=== PATIENT | male | born 1985 | race African-American/Black ===

== ENCOUNTER 2019-01-19 00:24 | Emergency (ER) | payer MEDICAID ==
[~2019-01-19] VITALS: Ht 167.6 cm; Wt 68.0 kg
[2019-01-19 00:33] VITALS: BP 126/72
--- NOTE | 2019-01-19 00:45 | NUR ---
ED Nurse Note: Recieved pt BIBA from streets with c/o meth use and anxiety, pt is awake, alert and oriented x 4, very agitated and restless, pt denies chest pain or any pain, no sob or labored breathing, pt placed on cardiac monitoring, MD at bedside, pt given food and fluids to drink, will continue to closely monitor, pt states he is homeless.
--- NOTE | 2019-01-19 00:56 | Emergency Room Report ---
History of Present Illness General Chief Complaint: Substance Abuse Source: Patient, EMS, Law Enforcement Present Illness HPI Disclaimer: Please note that this report is being documented using DRAGON technology. This can lead to erroneous entry secondary to incorrect interpretation by the dictating instrument. HPI: 33-year-old male with a history of substance abuse presents for evaluation of abnormal behavior. He comes in with police and [employer] fire but not in police custody. Patient reports to using crystal meth earlier in the day and was found wandering around acting somewhat erratically but not harming himself or others. He arrives with stable vital signs and is no complaints at this time. He denies any other drug or alcohol use today. States he uses meth intermittently. He has a history of depression but does not take medications. He denies SI or HI at this time. He is requesting something to eat and drink and would like to rest for a little bit. Patient is homeless. No acute medical complaints at this time. Denies headache, vision changes, chest pain, shortness of breath, nausea, vomiting or recent fever PMH: Substance abuse, depression PSH: Denies Allergies: Denies Social Hx: Crystal meth use Allergies: Coded Allergies: No Known Allergies (Unverified , 01/19/19) Review of Systems All Other Systems: negative except mentioned in HPI Physical Exam Vital Signs Date Time Temp Pulse Resp B/P (MAP) Pulse Ox O2 Delivery O2 Flow Rate FiO2 01/19/19 00:22 99.0 76 20 126/72 (90) 98 Room Air General: Awake and alert, no acute distress HEENT: NC/AT. EOMI. dry mucous membranes Cardiovascular: RRR. S1 and S2 normal. No murmur appreciated Resp: Normal work of breathing. No cough, wheezing or crackles appreciated Abdomen: Abdomen is soft, nondistended. Nontender Skin: 1 cm superficial laceration over the radial aspect of the left thumb just proximal to the IPJ MSK: Normal tone and bulk. Moving all extremities. No obvious deformity. Patient is able to flex and extend all digits of the left hand as well as the wrist. No tenderness over the anatomic snuffbox. Neuro: Awake and alert. Mentating appropriately. Following two-step commands without difficulty. No ataxia. Good attention and concentration. Denies SI/ HI. Medical Decision Making Homeless Attestation Patient has been medically screened and is stable for outpatient follow up Diagnostic Impression: Primary Impression: Substance abuse ER Course 33-year-old male presents for evaluation of erratic behavior after smoking crystal meth earlier in the day. He has no complaints at this time. He denies SI/HI and is requesting something to eat and drink. Appears he has a small and superficial laceration over the radial aspect of his left thumb which we will clean and inspect further. Does not appear to require closure. Will update tetanus. Reevaluation Time: 02:29 Last Vital Signs Date Time Temp Pulse Resp B/P (MAP) Pulse Ox O2 Delivery O2 Flow Rate FiO2 01/19/19 00:33 76 20 Room Air 01/19/19 00:33 99.0 126/72 98 Reevaluation Impression Patient stated he was ready to leave the emergency department. I was discharging him however he walked out without his papers. Ambulating with a steady gait. Disposition: HOME, SELF-CARE Condition: Stable Angel Dolan MD Jan 19, 2019 00:56
[2019-01-19] MEDS ORDERED: Tetanus/Diptheria/Pertussis IM ONE (01:00)
--- NOTE | 2019-01-19 02:00 | NUR ---
ED Nurse Note: pt remains awake and alert, given multiple drinks of water and sandwiches, pt remains slightly agitated but does follow directions, pt will not keep on monitoring, MD aware, urine sample sent, pt continuesto deny pain or any discomforts, just ask if he can "rest it off", no acute chagnes, will continue to closely monitor and d/c when sober.
[2019-01-19 02:30] VITALS: BP 126/72
--- NOTE | 2019-01-19 02:30 | NUR ---
ED Nurse Note: Pt came out of room and demanding to leave, states he does not want to stay anymore, MD aware, pt leftwithout d/c instructions, pt was awake, alert and oriented x 4, ambulatory with steady gait, no sob or labored breathing, nad noted during pt leaving facility without instructions, MD and charge nruse aware, pt refused all d/c forms and instructions.
== END 2019-01-19 02:30 | disposition home or self-care (01) ==
LOC: EDBD 00:24 → EMR 00:53
DX: F15.10 Other stimulant abuse, uncomplicated (principal); S61.012A Laceration without foreign body of left thumb without damage to nail, initial encounter; F32.9 Major depressive disorder, single episode, unspecified; Z59.0 Homelessness; X58.XXXA Exposure to other specified factors, initial encounter; Y93.9 Activity, unspecified; Y92.9 Unspecified place or not applicable
CPT/HCPCS: 90471; 90715; Z7502; 99282

== ENCOUNTER 2019-01-19 03:25 | Emergency (ER) | payer MEDICAID ==
[~2019-01-19] VITALS: Ht 172.7 cm; Wt 70.3 kg
--- NOTE | 2019-01-19 03:25 | NUR ---
ED Nurse Note: Sitter Requested, House sup states no sitter available.
--- NOTE | 2019-01-19 03:36 | Emergency Room Report ---
History of Present Illness General Chief Complaint: Overdose Source: Patient, Law Enforcement (Angel Dolan MD) Present Illness HPI Disclaimer: Please note that this report is being documented using DRAGON technology. This can lead to erroneous entry secondary to incorrect interpretation by the dictating instrument. HPI: 33-year-old male with a history of substance abuse returns to the emergency department after being discharged and leaving without his paperwork approximately 1 hour ago. He admits to methamphetamine use earlier in the day. Patient returns in the custody of police who are preparing to put him on a 5150 hold for danger to others. Reportedly, he called the choke setter himself stating that he was robbed. Police that he was agitated and he comes in in restraints. Please state that he was banging on the door of a nearby fast food restaurant and were called as a possible burglary. Again he has no complaints and is asking for food and something to drink. He arrives in restraints placed by police. PMH: Substance abuse, depression PSH: Denies Allergies: Denies Social Hx: As amphetamine abuse (Angel Dolan MD) Allergies: Coded Allergies: No Known Allergies (Unverified , 01/19/19) Review of Systems All Other Systems: negative except mentioned in HPI (Angel Dolan MD) Physical Exam Vital Signs Date Time Temp Pulse Resp B/P (MAP) Pulse Ox O2 Delivery O2 Flow Rate FiO2 01/19/19 03:23 98.2 87 22 135/76 (95) 96 Room Air General: Awake and alert, no acute distress HEENT: NC/AT. EOMI. Cardiovascular: RRR. S1 and S2 normal. No murmur appreciated Resp: Normal work of breathing. No cough, wheezing or crackles appreciated Abdomen: Abdomen is soft, nondistended. Nontender Skin: 1 cm superficial laceration over the radial aspect of the left thumb near the interphalangeal joint. Hemostatic, no edema. No purulence MSK: Arrives handcuffed to the [facility] with police. Normal tone and bulk. Moving all extremities. No obvious deformity. Neuro: Awake and alert. Answering questions appropriately. Somewhat agitated though redirectable. (Angel Dolan MD) Medical Decision Making ER Course 33-year-old male presents for evaluation of aggressive behavior now being placed on 5150 hold by [employer]. He admits to using crystal meth earlier in the day. Patient will have broad labs started and will require some sedation with Ativan and Benadryl. He remains in restraints but will remove once he is more calm and sedated. He will then require psychiatric clearance. Laboratory Tests Test 01/19/19 03:50 01/19/19 04:11 White Blood Count 9.1 K/UL (4.8-10.8) Red Blood Count 4.54 M/UL (4.70-6.10) L Hemoglobin 13.5 G/DL (14.2-18.0) L Hematocrit 41.4 % (42.0-52.0) L Mean Corpuscular Volume 91 FL (80-99) Mean Corpuscular Hemoglobin 29.8 PG (27.0-31.0) Mean Corpuscular Hemoglobin Concent 32.6 G/DL (32.0-36.0) Red Cell Distribution Width 12.9 % (11.6-14.8) Platelet Count 303 K/UL (150-450) Mean Platelet Volume 5.9 FL (6.5-10.1) L Neutrophils (%) (Auto) 58.6 % (45.0-75.0) Lymphocytes (%) (Auto) 26.2 % (20.0-45.0) Monocytes (%) (Auto) 11.5 % (1.0-10.0) H Eosinophils (%) (Auto) 2.3 % (0.0-3.0) Basophils (%) (Auto) 1.4 % (0.0-2.0) Sodium Level 144 MMOL/L (136-145) Potassium Level 4.4 MMOL/L (3.5-5.1) Chloride Level 107 MMOL/L (98-107) Carbon Dioxide Level 30 MMOL/L (21-32) Anion Gap 8 mmol/L (5-15) Blood Urea Nitrogen 32 mg/dL (7-18) H Creatinine 1.1 MG/DL (0.55-1.30) Estimate Glomerular Filtration Rate > 60 mL/min (>60) Glucose Level 91 MG/DL (74-106) Calcium Level 8.3 MG/DL (8.5-10.1) L Total Bilirubin 0.3 MG/DL (0.2-1.0) Aspartate Amino Transferase (AST) 44 U/L (15-37) H Alanine Aminotransferase (ALT) 56 U/L (12-78) Alkaline Phosphatase 59 U/L (46-116) Total Protein 7.0 G/DL (6.4-8.2) Albumin 3.3 G/DL (3.4-5.0) L Globulin 3.7 g/dL Albumin/Globulin Ratio 0.9 (1.0-2.7) L Salicylates Level 1.0 ug/mL (2.8-20) L Acetaminophen Level < 2 MCG/ML (10-30) L Serum Alcohol < 3 mg/dL Urine Color Pale yellow Urine Appearance Clear Urine pH 7 (4.5-8.0) Urine Specific [place] 1.015 (1.005-1.035) Urine Protein Negative (NEGATIVE) Urine Glucose (UA) Negative (NEGATIVE) Urine Ketones Negative (NEGATIVE) Urine Blood 4+ (NEGATIVE) H Urine Nitrite Negative (NEGATIVE) Urine Bilirubin Negative (NEGATIVE) Urine Urobilinogen Normal MG/DL (0.0-1.0) Urine Leukocyte Esterase Negative (NEGATIVE) Urine RBC 40-60 /HPF (0 - 0) H Urine WBC 2-4 /HPF (0 - 0) Urine Squamous Epithelial Cells None /LPF (NONE/OCC) Urine Bacteria Few /HPF (NONE) Urine Opiates Screen Negative (NEGATIVE) Urine Barbiturates Screen Negative (NEGATIVE) Phencyclidine (PCP) Screen Negative (NEGATIVE) Urine Amphetamines Screen Positive (NEGATIVE) H Urine Benzodiazepines Screen Negative (NEGATIVE) Urine Cocaine Screen Negative (NEGATIVE) Urine Marijuana (THC) Screen Negative (NEGATIVE) (Angel Dolan MD) ER Course Patient was seen by Dr. Santiago. Per recommendations patient will be given long -acting antipsychotic medication. Patient will be discharged home. Patient is to follow-up with outpatient mental health (Carlos Fox MD) Reevaluation Time: 05:23 Last Vital Signs Date Time Temp Pulse Resp B/P (MAP) Pulse Ox O2 Delivery O2 Flow Rate FiO2 01/19/19 03:23 98.2 87 22 135/76 (95) 96 Room Air Reevaluation Impression Labs have returned within normal limits. No evidence of white count, normal renal function though BUN is slightly elevated at 32. Toxicology is positive for amphetamines for which the patient admits. Urinalysis unremarkable. He is resting comfortably in restraints have been removed. He is medically cleared for psychiatric evaluation. (Angel Dolan MD) Referrals: [facility],REFERRING (PCP) Angel Dolan MD Jan 19, 2019 03:36 Carlos Fox MD Jan 19, 2019 12:48
[2019-01-19 03:40] VITALS: BP 135/76
--- NOTE | 2019-01-19 03:43 | NUR ---
ED Nurse Note: Patient was BIB [employer] due to OD. Patient left [facility] ER 30-40 min ago without signing any papers. Patient presented disoriented, anxious.
--- NOTE | 2019-01-19 03:44 | NUR ---
ED Nurse Note: Patient has no complains at this point, denyed any pain, AAO x2, VSS at this time, skin is warm to touch.
--- NOTE | 2019-01-19 03:45 | NUR ---
ED Nurse Note: Patient was placed on 5150 hol by [employer]. Patient undressed, all belongings were placed in locker # 2
--- NOTE | 2019-01-19 03:48 | NUR ---
ED Nurse Note: Blood and urine sent down
[2019-01-19] MEDS ORDERED: LORazepam Inj 2mg/ml 1ml IV ONE (04:00)
[2019-01-19] MEDS ORDERED: DiphenhydrAMINE 50mg/ml Inj IVP ONE (04:00)
[2019-01-19] MEDS ORDERED: DiphenhydrAMINE 50mg/ml Inj ONE (04:06)
[2019-01-19 04:17] LABS: BASOPHILS % (AUTO) 1.4 % (0.0-2.0); EOSINOPHILS % (AUTO) 2.3 % (0.0-3.0); HEMATOCRIT 41.4 % (42.0-52.0); HEMOGLOBIN 13.5 G/DL (14.2-18.0); LYMPHOCYTES % (AUTO) 26.2 % (20.0-45.0); MEAN CORPUSCULAR VOLUME 91 FL (80-99); MONOCYTES % (AUTO) 11.5 % (1.0-10.0); NEUTROPHILS % (AUTO) 58.6 % (45.0-75.0); PLATELET COUNT 303 K/UL (150-450); RED BLOOD COUNT 4.54 M/UL (4.70-6.10); RED CELL DISTRIBUTION WIDTH 12.9 % (11.6-14.8); WHITE BLOOD COUNT 9.1 K/UL (4.8-10.8)
[2019-01-19 04:24] LABS: APPEARANCE,URINE CLEAR; BILIRUBIN, URINE NEGATIVE (NEGATIVE); COLOR,URINE PALE YELLOW; GLUCOSE, URINE (UA) NEGATIVE (NEGATIVE); KETONES,URINE NEGATIVE (NEGATIVE); LEUKOCYTE ESTERASE ,URINE NEGATIVE (NEGATIVE); NITRITE,URINE NEGATIVE (NEGATIVE); PH,URINE 7 (4.5-8.0); PROTEIN,URINE NEGATIVE (NEGATIVE); UROBILINOGEN,URINE NORMAL MG/DL (0.0-1.0)
[2019-01-19 04:28] LABS: ANION GAP 8 mmol/L (5-15); BLOOD UREA NITROGEN 32 mg/dL (7-18); CALCIUM 8.3 MG/DL (8.5-10.1); CARBON DIOXIDE 30 MMOL/L (21-32); CHLORIDE 107 MMOL/L (98-107); CREATININE 1.1 MG/DL (0.55-1.30); POTASSIUM 4.4 MMOL/L (3.5-5.1); SODIUM 144 MMOL/L (136-145)
[2019-01-19 04:32] LABS: ALANINE AMINOTRANSFERASE 56 U/L (12-78); ALBUMIN 3.3 G/DL (3.4-5.0); ALBUMIN/GLOBULIN RATIO 0.9 (1.0-2.7); ALKALINE PHOSPHATASE 59 U/L (46-116); ASPARTATE AMINO TRANSFERASE 44 U/L (15-37); BILIRUBIN,TOTAL 0.3 MG/DL (0.2-1.0)
--- NOTE | 2019-01-19 05:32 | NUR ---
ED Nurse Note: Patient is in the bed, sleeping, no acute disstress noticed, VSS at this time.
[2019-01-19 05:33] VITALS: BP 138/76
--- NOTE | 2019-01-19 07:09 | NUR ---
HAND-OFF: Report given to DEMETRA Baltazar. Patient is sleeping, VSS at this time. Sitter by bed side.
--- NOTE | 2019-01-19 07:14 | NUR ---
ED Nurse Note: Pt sleeping. Sitter at bedside. No acute distress at this time.
[2019-01-19 10:00] VITALS: BP 132/75
[2019-01-19 12:05] VITALS: BP 135/76
--- NOTE | 2019-01-19 12:50 | NUR ---
ED Nurse Note: DR. Santiago evaluated pt. pt denied thought of hurting himself or others. pt denied using meth but when Dr. Santiago mentioned lab results he accepted. per pt, he lives with mother and mother pays bills. pt will go back to mother's apartment.
--- NOTE | 2019-01-19 12:51 | NUR ---
ED Nurse Note: Dr. Santiago discharged sitter order.
[2019-01-19] MEDS ORDERED: Haloperidol Decanoate (Long Acting) 50mg Inj IM ONE (13:00)
--- NOTE | 2019-01-19 14:40 | NUR ---
ED Nurse Note: Pt cleared by health care Provider for discharge. Patient ambulated to bathroom with steady gait and new set of clothes provided with foods. DC instructions was given and explained to pt and verbalized understanding of teachings. All medical deviecs such as ID band removed. Pt is AAO x4, ambulatory and left with all personal belongings.
--- NOTE | 2019-01-19 19:45 | Consultation ---
DATE OF CONSULTATION: 01/19/2019 CONSULTING PHYSICIAN: Federico Santiago M.D. HISTORY OF PRESENT ILLNESS: This is a 33-year-old black male with a history of crystal meth use who has been admitted at the emergency room for evaluation. The patient left against medical advice and returned on a 5150 for vandalizing the properties outside of the hospital. The patient was given Benadryl and Ativan. The patient denied any suicidal or homicidal ideation. The patient was dozing off and was withdrawing from meth. The patient did not endorse any psychotic or manic symptoms. The patient is not agitated, was observed eating breakfast. Stated that he would like to go to [place] to his mother and would like a right to her apartment. He agreed to take Decanoate shot. PAST PSYCHIATRIC HISTORY: Denied any mental illness. Denied having a psychiatrist. Denied suicide attempt. PAST MEDICAL HISTORY: Nonsignificant. ALLERGIES: No known drug allergies. SUBSTANCE ABUSE HISTORY: Include meth. MENTAL STATUS EXAMINATION: The patient is alert, oriented times self, place, situation. Mood is neutral. Affect is constricted. Thought process is concrete. Thought content, no suicidal or homicidal ideation. Cognition is impaired. Insight and judgment is impaired. ASSESSMENT: [place] I Methamphetamine abuse. 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 [place] II Deferred. [place] III As above. [place] IV Low. [place] V 50. PLAN: 1. The patient will receive Haldol Decanoate 100 mg. 2. The patient is not an eminent danger to self or others. Therefore, I will discontinue the hold. Federico Santiago M.D. DR: SENIA JOB#: [id number] CC: DARVIN
== END 2019-01-19 14:40 | disposition home or self-care (01) ==
LOC: EDBD 03:25 → EMR 03:34
DX: F15.10 Other stimulant abuse, uncomplicated (principal); S61.012A Laceration without foreign body of left thumb without damage to nail, initial encounter; F32.9 Major depressive disorder, single episode, unspecified; X58.XXXA Exposure to other specified factors, initial encounter; Y93.9 Activity, unspecified; Y92.9 Unspecified place or not applicable; Z59.0 Homelessness
CPT/HCPCS: 36415; 80053; 80307; 81003; 85025; 96372; 96374; G0480; G0481; J1631; Z7502; 99285